=== PATIENT | male | born 1965 | race Caucasian/White ===

== ENCOUNTER 2016-11-14 12:47 | Inpatient (IN) | payer OTHER ==
[~2016-11-14] VITALS: Ht 180.3 cm; Wt 96.6 kg
[2016-11-14] MEDS ORDERED: LEVETIRACETAM (500MG) 500 MG in IV NS 0.9% 100 ML IV STA (13:00)
[2016-11-14] MEDS ORDERED: IV SET PRIMARY PUMP SET 1 EA INFUS.SET MC ONE ×3 (13:28→20:49)
[2016-11-14] MEDS ORDERED: CEFTRIAXONE 1GM BAG (ER ONLY) 50 ML IV ONE (13:28)
[2016-11-14] MEDS ORDERED: OCTREOTIDE 100 MCG/ML VIAL ONE (13:29)
[2016-11-14] MEDS ORDERED: OCTREOTIDE 1,250 MCG in IV NS 0.9% 250 ML IV ONE (13:30)
[2016-11-14] MEDS ORDERED: PANTOPRAZOLE 80 MG in IV NS 0.9% 500 ML IV ONE (13:30)
[2016-11-14] MEDS ORDERED: OCTREOTIDE 50 MCG/ML AMPUL IV ONE (13:30)
[2016-11-14] MEDS ORDERED: PANTOPRAZOLE 80 MG in IV NS 0.9% 100 ML IV ONE (13:30)
[2016-11-14] MEDS ORDERED: CEFTRIAXONE 1GM BAG (ER ONLY) 1 GM/50 ML PIGGYBACK IV ONE (13:30)
[2016-11-14 13:32] LABS: BASOPHILS % (AUTO) 0.6 % (0.0-2.0); DIFF TOTAL % 100 %; EOSINOPHILS # (AUTO) 0.1 /CMM (0.0-0.7); EOSINOPHILS % (AUTO) 1.7 % (0.0-6.0); HEMATOCRIT 28 % (39-51); HEMOGLOBIN 9.2 g/dL (13.5-17.5); LYMPHOCYTES # (AUTO) 1.1 /CMM (0.8-4.8); LYMPHOCYTES % (AUTO) 25.6 % (20.0-44.0); MEAN CORPUSCULAR HEMOGLOBIN 28 PG (26.0-33.0); MEAN CORPUSCULAR HGB CONC 33 g/dl (31.0-36.0); MEAN CORPUSCULAR VOLUME 84 fL (80-96); MONOCYTES # (AUTO) 0.7 /CMM (0.1-1.30); MONOCYTES % (AUTO) 15.4 % (2.0-12.0); NEUTROPHILS # (AUTO) 2.5 /CMM (1.8-8.9); NEUTROPHILS % (AUTO) 56.7 % (43.0-81.0); RED BLOOD CELL COUNT(AUTO) 3.34 MIL/uL (4.5-6.0); WHITE BLOOD COUNT (AUTO) 4.5 K/uL (4.3-11.0)
[2016-11-14] MEDS ORDERED: LEVE500T6 PO (13:38)
[2016-11-14 13:43] LABS: CALCIUM, SERUM 7.5 mg/dL (8.5-10.1); CREATININE 0.6 mg/dL (0.6-1.3); POTASSIUM 3.2 mmol/L (3.5-5.1)
[2016-11-14] MEDS ORDERED: THIA100T74 PO (13:44)
[2016-11-14 13:46] LABS: PLATELET COUNT (AUTO) 44 /CMM (150-450)
[2016-11-14] MEDS ORDERED: HYDR-552 PO (13:49)
[2016-11-14 13:50] LABS: ALBUMIN 2.8 g/dL (3.4-5.0); BILIRUBIN,DIRECT 1.2 mg/dL (0.0-0.2); BILIRUBIN,TOTAL 1.7 mg/dL (0.2-1.0); INDIRECT BILIRUBIN 0.5 mg/dL (0.0-1.1); TOTAL PROTEIN, SERUM 7.5 g/dL (6.4-8.2)
[2016-11-14] MEDS ORDERED: Z GUARD REMEDY 2 OZ OINT TP PRN (15:30)
[2016-11-14] MEDS ORDERED: ONDANSETRON HCL/PF 4 MG/2 ML VIAL IVP PRN (15:30)
[2016-11-14 16:00] VITALS: BP 129/75
[2016-11-14 16:09] LABS: ANISOCYTOSIS 3+; LYMPHOCYTES % (MANUAL) 19 % (16-48); PLATELET ESTIMATE DECREASED
[2016-11-14] MEDS: IV NS 0.9% 1,000 ML IV PRN (18:03)
[2016-11-14] MEDS ORDERED: PIPERACILLIN /TAZOBACTAM 4.5 G in IV D5W 50 ML IV SCH (19:00)
[2016-11-14] MEDS ORDERED: LORAZEPAM INJ 2 MG/ML VIAL IV PRN (19:00)
[2016-11-14 20:00] VITALS: BP 93/45
[2016-11-14] MEDS ORDERED: SECONDARY IV SET 1 EA INFUS.SET MC ONE (20:17)
[2016-11-14] MEDS ORDERED: IV NS 0.9% 200 ML IV ONE (20:50)
[2016-11-14] MEDS: Folic acid 1 MG in IV D5W 50 ML IV SCH (20:56)
[2016-11-14] MEDS: Thiamine 100 MG in IV D5W 50 ML IV SCH (20:56)
[2016-11-14] MEDS: LEVETIRACETAM (250 MG) 250 MG TABLET PO SCH (21:12)
[2016-11-15] VITALS (9 sets, daily range): BP systolic 109–140; BP diastolic 57–81
[2016-11-15] MEDS ORDERED: SECONDARY IV SET 1 EA INFUS.SET MC ONE ×3 (00:12→22:24)
[2016-11-15] MEDS: PIPERACILLIN /TAZOBACTAM 3.375 G in IV D5W 50 ML IV SCH ×4 (00:23→17:01)
[2016-11-15] MEDS: PANTOPRAZOLE 80 MG in IV NS 0.9% 500 ML IV PRN ×3 (02:11→23:29)
[2016-11-15 07:01] LABS: BASOPHILS % (AUTO) 0.9 % (0.0-2.0); DIFF TOTAL % 100 %; EOSINOPHILS # (AUTO) 0.1 /CMM (0.0-0.7); EOSINOPHILS % (AUTO) 2.4 % (0.0-6.0); HEMATOCRIT 24 % (39-51); HEMOGLOBIN 7.8 g/dL (13.5-17.5); LYMPHOCYTES # (AUTO) 0.7 /CMM (0.8-4.8); LYMPHOCYTES % (AUTO) 28.1 % (20.0-44.0); MEAN CORPUSCULAR HEMOGLOBIN 28 PG (26.0-33.0); MEAN CORPUSCULAR HGB CONC 32 g/dl (31.0-36.0); MEAN CORPUSCULAR VOLUME 85 fL (80-96); MONOCYTES # (AUTO) 0.6 /CMM (0.1-1.30); MONOCYTES % (AUTO) 23.7 % (2.0-12.0); NEUTROPHILS # (AUTO) 1.1 /CMM (1.8-8.9); NEUTROPHILS % (AUTO) 44.9 % (43.0-81.0); RED BLOOD CELL COUNT(AUTO) 2.83 MIL/uL (4.5-6.0); WHITE BLOOD COUNT (AUTO) 2.4 K/uL (4.3-11.0)
[2016-11-15 07:08] LABS: ALBUMIN 2.2 g/dL (3.4-5.0); BILIRUBIN,TOTAL 1.7 mg/dL (0.2-1.0); CALCIUM, SERUM 6.9 mg/dL (8.5-10.1); CREATININE 0.6 mg/dL (0.6-1.3); PHOSPHORUS 2.7 mg/dL (2.5-4.9); POTASSIUM 3.6 mmol/L (3.5-5.1); TOTAL PROTEIN, SERUM 6.2 g/dL (6.4-8.2)
[2016-11-15 07:29] LABS: INR 1.72 (0.87-1.13); PROTHROMBIN TIME 18.7 SECS (9.5-12.7)
[2016-11-15 07:39] LABS: PLATELET COUNT (AUTO) 20 /CMM (150-450)
[2016-11-15] MEDS: IV NS 0.9% 1,000 ML IV PRN (08:06)
[2016-11-15] MEDS: LEVETIRACETAM (250 MG) 250 MG TABLET PO SCH (09:00)
[2016-11-15] MEDS ORDERED: Folic acid 1 MG in IV D5W 50 ML IV SCH (09:00)
[2016-11-15 10:06] LABS: ANISOCYTOSIS 3+; EOSINOPHILS % (MANUAL) 5 % (0-4); LYMPHOCYTES % (MANUAL) 11 % (16-48); PLATELET ESTIMATE DECREASED; POIKILOCYTOSIS 1+
[2016-11-15 12:27] LABS: BASOPHILS % (AUTO) 1.8 % (0.0-2.0); DIFF TOTAL % 100 %; EOSINOPHILS % (AUTO) 0.9 % (0.0-6.0); HEMATOCRIT 27 % (39-51); HEMOGLOBIN 8.6 g/dL (13.5-17.5); LYMPHOCYTES # (AUTO) 0.5 /CMM (0.8-4.8); LYMPHOCYTES % (AUTO) 21.1 % (20.0-44.0); MEAN CORPUSCULAR HEMOGLOBIN 27 PG (26.0-33.0); MEAN CORPUSCULAR HGB CONC 32 g/dl (31.0-36.0); MEAN CORPUSCULAR VOLUME 84 fL (80-96); MONOCYTES # (AUTO) 0.4 /CMM (0.1-1.30); MONOCYTES % (AUTO) 15.3 % (2.0-12.0); NEUTROPHILS # (AUTO) 1.4 /CMM (1.8-8.9); NEUTROPHILS % (AUTO) 60.9 % (43.0-81.0); RED BLOOD CELL COUNT(AUTO) 3.18 MIL/uL (4.5-6.0); WHITE BLOOD COUNT (AUTO) 2.4 K/uL (4.3-11.0)
[2016-11-15 12:44] LABS: PLATELET COUNT (AUTO) 31 /CMM (150-450)
[2016-11-15 14:07] LABS: BAND % (MANUAL) 1 % (0.0-5.0); LYMPHOCYTES % (MANUAL) 6 % (16-48)
[2016-11-15 14:08] LABS: ANISOCYTOSIS 2+; PLATELET ESTIMATE DECREASED
[2016-11-15] MEDS: Magnesium 1GM/D5W 100ML PREMIX 100 ML IV SCH ×2 (14:10→15:35)
[2016-11-15 15:10] LABS: KETONES,URINE NEGATIVE (NEGATIVE); LEUKOCYTE ESTERASE ,URINE NEGATIVE (NEGATIVE)
[2016-11-15 15:12] LABS: ADD UA MICROSCOPIC YES
[2016-11-15 15:48] LABS: ADD URINE CULTURE NO; WBC,URINE 0-2 /HPF (0-3)
[2016-11-15] MEDS: OCTREOTIDE 1,250 MCG in IV NS 0.9% 247.5 ML IV PRN (16:56)
[2016-11-15 18:19] LABS: BASOPHILS % (AUTO) 0.9 % (0.0-2.0); EOSINOPHILS % (AUTO) 0.6 % (0.0-6.0); HEMATOCRIT 26 % (39-51); HEMOGLOBIN 8.2 g/dL (13.5-17.5); LYMPHOCYTES # (AUTO) 0.5 /CMM (0.8-4.8); LYMPHOCYTES % (AUTO) 19.8 % (20.0-44.0); MEAN CORPUSCULAR HEMOGLOBIN 27 PG (26.0-33.0); MEAN CORPUSCULAR HGB CONC 32 g/dl (31.0-36.0); MEAN CORPUSCULAR VOLUME 84 fL (80-96); MONOCYTES # (AUTO) 0.5 /CMM (0.1-1.30); MONOCYTES % (AUTO) 21.2 % (2.0-12.0); NEUTROPHILS # (AUTO) 1.3 /CMM (1.8-8.9); NEUTROPHILS % (AUTO) 57.5 % (43.0-81.0); RED BLOOD CELL COUNT(AUTO) 3.05 MIL/uL (4.5-6.0); WHITE BLOOD COUNT (AUTO) 2.3 K/uL (4.3-11.0)
[2016-11-15 19:07] LABS: DIFF TOTAL % 100 %; PLATELET COUNT (AUTO) 26 /CMM (150-450)
[2016-11-15 19:44] LABS: ANISOCYTOSIS 1+; BAND % (MANUAL) 2 % (0.0-5.0); HYPOCHROMASIA 1+; LYMPHOCYTES % (MANUAL) 20 % (16-48); PLATELET ESTIMATE DECREASED; ROULEAUX 1+
[2016-11-15 19:45] LABS: MICROCYTOSIS 1+; TARGET CELLS 1+
[2016-11-15] MEDS: Folic acid 1 MG in IV D5W 50 ML IV SCH (20:14)
[2016-11-15] MEDS: Thiamine 100 MG in IV D5W 50 ML IV SCH (20:59)
[2016-11-15] MEDS ORDERED: MORPHINE SULFATE INJ 2 MG/ML DISP.SYRIN IV PRN (21:00)
[2016-11-15] MEDS ORDERED: LEVETIRACETAM (500MG) 500 MG/5 ML VIAL IV ONE (22:17)
[2016-11-15] MEDS ORDERED: IV NS 0.9% 100 ML IV ONE (22:24)
[2016-11-15] MEDS: LEVETIRACETAM (500MG) 500 MG in IV NS 0.9% 100 ML IV SCH (22:32)
[2016-11-16] VITALS: BP 124/70
[2016-11-16] MEDS: PIPERACILLIN /TAZOBACTAM 3.375 G in IV D5W 50 ML IV SCH ×4 (00:05→17:19)
[2016-11-16] MEDS ORDERED: SECONDARY IV SET 1 EA INFUS.SET MC ONE ×2 (00:06→09:34)
[2016-11-16 00:53] LABS: BASOPHILS % (AUTO) 0.5 % (0.0-2.0); DIFF TOTAL % 100 %; EOSINOPHILS # (AUTO) 0.1 /CMM (0.0-0.7); EOSINOPHILS % (AUTO) 2.1 % (0.0-6.0); HEMATOCRIT 25 % (39-51); HEMOGLOBIN 8.1 g/dL (13.5-17.5); LYMPHOCYTES # (AUTO) 0.8 /CMM (0.8-4.8); LYMPHOCYTES % (AUTO) 34.3 % (20.0-44.0); MEAN CORPUSCULAR HEMOGLOBIN 27 PG (26.0-33.0); MEAN CORPUSCULAR HGB CONC 32 g/dl (31.0-36.0); MEAN CORPUSCULAR VOLUME 84 fL (80-96); MONOCYTES # (AUTO) 0.5 /CMM (0.1-1.30); NEUTROPHILS % (AUTO) 41.1 % (43.0-81.0); RED BLOOD CELL COUNT(AUTO) 3.02 MIL/uL (4.5-6.0); WHITE BLOOD COUNT (AUTO) 2.4 K/uL (4.3-11.0)
[2016-11-16 00:56] LABS: PLATELET COUNT (AUTO) 26 /CMM (150-450)
[2016-11-16 02:27] LABS: ANISOCYTOSIS 1+; EOSINOPHILS % (MANUAL) 4 % (0-4); HYPOCHROMASIA 1+; LYMPHOCYTES % (MANUAL) 32 % (16-48); PLATELET ESTIMATE DECREASED
[2016-11-16] MEDS: IV NS 0.9% 1,000 ML IV PRN (07:51)
[2016-11-16 08:00] VITALS: BP 116/70
[2016-11-16 08:38] LABS: BASOPHILS % (AUTO) 0.6 % (0.0-2.0); DIFF TOTAL % 100 %; EOSINOPHILS # (AUTO) 0.1 /CMM (0.0-0.7); EOSINOPHILS % (AUTO) 3.3 % (0.0-6.0); HEMATOCRIT 26 % (39-51); HEMOGLOBIN 8.6 g/dL (13.5-17.5); LYMPHOCYTES # (AUTO) 0.5 /CMM (0.8-4.8); MEAN CORPUSCULAR HEMOGLOBIN 27 PG (26.0-33.0); MEAN CORPUSCULAR HGB CONC 33 g/dl (31.0-36.0); MEAN CORPUSCULAR VOLUME 84 fL (80-96); MONOCYTES # (AUTO) 0.4 /CMM (0.1-1.30); MONOCYTES % (AUTO) 19.8 % (2.0-12.0); NEUTROPHILS # (AUTO) 0.9 /CMM (1.8-8.9); NEUTROPHILS % (AUTO) 49.3 % (43.0-81.0); RED BLOOD CELL COUNT(AUTO) 3.13 MIL/uL (4.5-6.0)
[2016-11-16 08:44] LABS: PLATELET COUNT (AUTO) 21 /CMM (150-450); WHITE BLOOD COUNT (AUTO) 1.8 K/uL (4.3-11.0)
[2016-11-16 09:23] LABS: ALBUMIN 2.4 g/dL (3.4-5.0); BILIRUBIN,DIRECT 1.5 mg/dL (0.0-0.2); CALCIUM, SERUM 7.3 mg/dL (8.5-10.1); CREATININE 0.6 mg/dL (0.6-1.3); INDIRECT BILIRUBIN 1.5 mg/dL (0.0-1.1); POTASSIUM 3.5 mmol/L (3.5-5.1); TOTAL PROTEIN, SERUM 6.6 g/dL (6.4-8.2)
[2016-11-16] MEDS: PANTOPRAZOLE 80 MG in IV NS 0.9% 500 ML IV PRN (09:31)
[2016-11-16] MEDS: LEVETIRACETAM (500MG) 500 MG in IV NS 0.9% 100 ML IV SCH ×2 (09:36→21:29)
[2016-11-16 09:49] LABS: ANISOCYTOSIS 1+; EOSINOPHILS % (MANUAL) 4 % (0-4); LYMPHOCYTES % (MANUAL) 26 % (16-48); PLATELET ESTIMATE DECREASED
[2016-11-16 12:29] LABS: BASOPHILS % (AUTO) 0.4 % (0.0-2.0); DIFF TOTAL % 100 %; EOSINOPHILS % (AUTO) 1.8 % (0.0-6.0); HEMATOCRIT 27 % (39-51); HEMOGLOBIN 8.4 g/dL (13.5-17.5); LYMPHOCYTES # (AUTO) 0.4 /CMM (0.8-4.8); LYMPHOCYTES % (AUTO) 19.2 % (20.0-44.0); MEAN CORPUSCULAR HEMOGLOBIN 27 PG (26.0-33.0); MEAN CORPUSCULAR HGB CONC 32 g/dl (31.0-36.0); MEAN CORPUSCULAR VOLUME 85 fL (80-96); MONOCYTES # (AUTO) 0.4 /CMM (0.1-1.30); NEUTROPHILS # (AUTO) 1.2 /CMM (1.8-8.9); NEUTROPHILS % (AUTO) 59.6 % (43.0-81.0); RED BLOOD CELL COUNT(AUTO) 3.16 MIL/uL (4.5-6.0)
[2016-11-16 12:36] LABS: PLATELET COUNT (AUTO) 25 /CMM (150-450)
[2016-11-16 12:53] LABS: LYMPHOCYTES % (MANUAL) 21 % (16-48)
[2016-11-16 12:54] LABS: ANISOCYTOSIS 1+; EOSINOPHILS % (MANUAL) 2 % (0-4); PLATELET ESTIMATE DECREASED
[2016-11-16 16:00] VITALS: BP 140/78
[2016-11-16] MEDS: OCTREOTIDE 1,250 MCG in IV NS 0.9% 247.5 ML IV PRN (17:19)
[2016-11-16 18:00] VITALS: BP 140/78
[2016-11-16 18:15] LABS: BASOPHILS % (AUTO) 0.5 % (0.0-2.0); DIFF TOTAL % 100 %; EOSINOPHILS # (AUTO) 0.1 /CMM (0.0-0.7); EOSINOPHILS % (AUTO) 2.2 % (0.0-6.0); HEMATOCRIT 27 % (39-51); HEMOGLOBIN 8.5 g/dL (13.5-17.5); LYMPHOCYTES # (AUTO) 0.7 /CMM (0.8-4.8); LYMPHOCYTES % (AUTO) 26.8 % (20.0-44.0); MEAN CORPUSCULAR HEMOGLOBIN 27 PG (26.0-33.0); MEAN CORPUSCULAR HGB CONC 31 g/dl (31.0-36.0); MEAN CORPUSCULAR VOLUME 85 fL (80-96); MONOCYTES # (AUTO) 0.5 /CMM (0.1-1.30); MONOCYTES % (AUTO) 18.8 % (2.0-12.0); NEUTROPHILS # (AUTO) 1.4 /CMM (1.8-8.9); NEUTROPHILS % (AUTO) 51.7 % (43.0-81.0); WHITE BLOOD COUNT (AUTO) 2.6 K/uL (4.3-11.0)
[2016-11-16 18:24] LABS: PLATELET COUNT (AUTO) 28 /CMM (150-450)
[2016-11-16 18:46] LABS: EOSINOPHILS % (MANUAL) 2 % (0-4); LYMPHOCYTES % (MANUAL) 28 % (16-48)
[2016-11-16 18:47] LABS: ANISOCYTOSIS 1+; HYPOCHROMASIA 1+; PLATELET ESTIMATE DECREASED
[2016-11-16] MEDS: Folic acid 1 MG in IV D5W 50 ML IV SCH (19:45)
[2016-11-16] MEDS: Thiamine 100 MG in IV D5W 50 ML IV SCH (19:46)
[2016-11-16 20:00] VITALS: BP 131/73
[2016-11-16] MEDS ORDERED: IV SET PRIMARY PUMP SET 1 EA INFUS.SET MC ONE (20:23)
[2016-11-16] MEDS ORDERED: IV D5W 1,000 ML IV ONE (20:23)
[2016-11-16] MEDS: IV D5W 1,000 ML IV PRN (20:30)
[2016-11-16 21:18] VITALS: BP 131/73
[2016-11-17] MEDS: PIPERACILLIN /TAZOBACTAM 3.375 G in IV D5W 50 ML IV SCH ×4 (00:27→18:47)
[2016-11-17 01:02] LABS: BASOPHILS # (AUTO) 0.1 /CMM (0.0-0.2); DIFF TOTAL % 100 %; EOSINOPHILS # (AUTO) 0.1 /CMM (0.0-0.7); EOSINOPHILS % (AUTO) 2.8 % (0.0-6.0); HEMATOCRIT 27 % (39-51); HEMOGLOBIN 8.5 g/dL (13.5-17.5); LYMPHOCYTES # (AUTO) 0.8 /CMM (0.8-4.8); LYMPHOCYTES % (AUTO) 28.9 % (20.0-44.0); MEAN CORPUSCULAR HEMOGLOBIN 27 PG (26.0-33.0); MEAN CORPUSCULAR HGB CONC 32 g/dl (31.0-36.0); MEAN CORPUSCULAR VOLUME 85 fL (80-96); MONOCYTES # (AUTO) 0.4 /CMM (0.1-1.30); MONOCYTES % (AUTO) 16.8 % (2.0-12.0); NEUTROPHILS # (AUTO) 1.2 /CMM (1.8-8.9); NEUTROPHILS % (AUTO) 49.5 % (43.0-81.0); RED BLOOD CELL COUNT(AUTO) 3.12 MIL/uL (4.5-6.0); WHITE BLOOD COUNT (AUTO) 2.7 K/uL (4.3-11.0)
[2016-11-17 01:06] LABS: PLATELET COUNT (AUTO) 20 /CMM (150-450)
[2016-11-17 01:57] LABS: BAND % (MANUAL) 1 % (0.0-5.0); LYMPHOCYTES % (MANUAL) 25 % (16-48)
[2016-11-17 01:58] LABS: ANISOCYTOSIS 1+; BASOPHILS % (MANUAL) 0 % (0.0-2.0); EOSINOPHILS % (MANUAL) 4 % (0-4); PLATELET ESTIMATE DECREASED; TARGET CELLS 1+
[2016-11-17 07:34] LABS: DIFF TOTAL % 100 %; EOSINOPHILS # (AUTO) 0.1 /CMM (0.0-0.7); EOSINOPHILS % (AUTO) 3.5 % (0.0-6.0); HEMATOCRIT 26 % (39-51); HEMOGLOBIN 8.5 g/dL (13.5-17.5); LYMPHOCYTES # (AUTO) 0.6 /CMM (0.8-4.8); LYMPHOCYTES % (AUTO) 24.6 % (20.0-44.0); MEAN CORPUSCULAR HEMOGLOBIN 28 PG (26.0-33.0); MEAN CORPUSCULAR HGB CONC 32 g/dl (31.0-36.0); MEAN CORPUSCULAR VOLUME 85 fL (80-96); MONOCYTES # (AUTO) 0.4 /CMM (0.1-1.30); MONOCYTES % (AUTO) 18.6 % (2.0-12.0); NEUTROPHILS # (AUTO) 1.2 /CMM (1.8-8.9); NEUTROPHILS % (AUTO) 52.3 % (43.0-81.0); RED BLOOD CELL COUNT(AUTO) 3.08 MIL/uL (4.5-6.0); WHITE BLOOD COUNT (AUTO) 2.3 K/uL (4.3-11.0)
[2016-11-17 08:11] LABS: PLATELET COUNT (AUTO) 22 /CMM (150-450)
[2016-11-17 08:44] VITALS: BP 113/72
[2016-11-17 09:32] LABS: ANISOCYTOSIS 1+; BAND % (MANUAL) 4 % (0.0-5.0); EOSINOPHILS % (MANUAL) 4 % (0-4); HYPOCHROMASIA 1+; LYMPHOCYTES % (MANUAL) 22 % (16-48); PLATELET ESTIMATE DECREASED
[2016-11-17] MEDS: LEVETIRACETAM (500MG) 500 MG in IV NS 0.9% 100 ML IV SCH ×2 (10:31→22:48)
[2016-11-17] MEDS ORDERED: IV SET PRIMARY PUMP SET 1 EA INFUS.SET MC ONE (12:26)
[2016-11-17] MEDS: PANTOPRAZOLE 80 MG in IV NS 0.9% 500 ML IV PRN (12:26)
[2016-11-17 13:47] LABS: BASOPHILS % (AUTO) 0.7 % (0.0-2.0); DIFF TOTAL % 100 %; EOSINOPHILS # (AUTO) 0.1 /CMM (0.0-0.7); EOSINOPHILS % (AUTO) 1.9 % (0.0-6.0); HEMATOCRIT 28 % (39-51); LYMPHOCYTES # (AUTO) 0.5 /CMM (0.8-4.8); LYMPHOCYTES % (AUTO) 17.5 % (20.0-44.0); MEAN CORPUSCULAR HEMOGLOBIN 27 PG (26.0-33.0); MEAN CORPUSCULAR HGB CONC 32 g/dl (31.0-36.0); MEAN CORPUSCULAR VOLUME 85 fL (80-96); MONOCYTES # (AUTO) 0.4 /CMM (0.1-1.30); MONOCYTES % (AUTO) 15.7 % (2.0-12.0); NEUTROPHILS # (AUTO) 1.8 /CMM (1.8-8.9); NEUTROPHILS % (AUTO) 64.2 % (43.0-81.0); RED BLOOD CELL COUNT(AUTO) 3.31 MIL/uL (4.5-6.0); WHITE BLOOD COUNT (AUTO) 2.9 K/uL (4.3-11.0)
[2016-11-17 14:16] LABS: PLATELET COUNT (AUTO) 29 /CMM (150-450)
[2016-11-17 14:52] LABS: BAND % (MANUAL) 3 % (0.0-5.0); EOSINOPHILS % (MANUAL) 2 % (0-4); LYMPHOCYTES % (MANUAL) 16 % (16-48)
[2016-11-17 16:00] VITALS: BP 107/69
[2016-11-17 18:22] LABS: BASOPHILS % (AUTO) 0.7 % (0.0-2.0); DIFF TOTAL % 100 %; EOSINOPHILS # (AUTO) 0.1 /CMM (0.0-0.7); EOSINOPHILS % (AUTO) 2.2 % (0.0-6.0); HEMATOCRIT 27 % (39-51); HEMOGLOBIN 8.7 g/dL (13.5-17.5); LYMPHOCYTES # (AUTO) 0.6 /CMM (0.8-4.8); MEAN CORPUSCULAR HEMOGLOBIN 27 PG (26.0-33.0); MEAN CORPUSCULAR HGB CONC 32 g/dl (31.0-36.0); MEAN CORPUSCULAR VOLUME 85 fL (80-96); MONOCYTES # (AUTO) 0.4 /CMM (0.1-1.30); MONOCYTES % (AUTO) 14.3 % (2.0-12.0); NEUTROPHILS # (AUTO) 1.7 /CMM (1.8-8.9); NEUTROPHILS % (AUTO) 61.8 % (43.0-81.0); WHITE BLOOD COUNT (AUTO) 2.7 K/uL (4.3-11.0)
[2016-11-17 18:24] LABS: PLATELET COUNT (AUTO) 26 /CMM (150-450)
[2016-11-17] MEDS: OCTREOTIDE 1,250 MCG in IV NS 0.9% 247.5 ML IV PRN (18:53)
[2016-11-17 20:00] VITALS: BP 110/87
[2016-11-17] MEDS: IV D5W 1,000 ML IV PRN (21:52)
[2016-11-17] MEDS: Folic acid 1 MG in IV D5W 50 ML IV SCH (21:52)
[2016-11-17] MEDS: Thiamine 100 MG in IV D5W 50 ML IV SCH (21:53)
[2016-11-18] MEDS: PIPERACILLIN /TAZOBACTAM 3.375 G in IV D5W 50 ML IV SCH ×3 (00:27→12:45)
[2016-11-18] MEDS: PANTOPRAZOLE 80 MG in IV NS 0.9% 500 ML IV PRN (00:28)
[2016-11-18 01:37] LABS: BASOPHILS % (AUTO) 0.4 % (0.0-2.0); DIFF TOTAL % 100 %; EOSINOPHILS # (AUTO) 0.1 /CMM (0.0-0.7); HEMATOCRIT 28 % (39-51); HEMOGLOBIN 8.8 g/dL (13.5-17.5); LYMPHOCYTES # (AUTO) 0.8 /CMM (0.8-4.8); MEAN CORPUSCULAR HEMOGLOBIN 27 PG (26.0-33.0); MEAN CORPUSCULAR HGB CONC 32 g/dl (31.0-36.0); MEAN CORPUSCULAR VOLUME 85 fL (80-96); MONOCYTES # (AUTO) 0.4 /CMM (0.1-1.30); MONOCYTES % (AUTO) 12.2 % (2.0-12.0); NEUTROPHILS # (AUTO) 2.1 /CMM (1.8-8.9); NEUTROPHILS % (AUTO) 62.4 % (43.0-81.0); RED BLOOD CELL COUNT(AUTO) 3.25 MIL/uL (4.5-6.0); WHITE BLOOD COUNT (AUTO) 3.4 K/uL (4.3-11.0)
[2016-11-18 01:46] LABS: PLATELET COUNT (AUTO) 27 /CMM (150-450)
[2016-11-18 02:18] LABS: ANISOCYTOSIS 2+; BAND % (MANUAL) 7 % (0.0-5.0); BASOPHILS % (MANUAL) 0 % (0.0-2.0); EOSINOPHILS % (MANUAL) 7 % (0-4); LYMPHOCYTES % (MANUAL) 27 % (16-48); PLATELET ESTIMATE DECREASED; TARGET CELLS 1+
[2016-11-18 04:00] VITALS: BP 120/87
[2016-11-18 07:28] LABS: BASOPHILS % (AUTO) 0.7 % (0.0-2.0); DIFF TOTAL % 100 %; EOSINOPHILS # (AUTO) 0.1 /CMM (0.0-0.7); EOSINOPHILS % (AUTO) 2.2 % (0.0-6.0); HEMATOCRIT 26 % (39-51); HEMOGLOBIN 8.4 g/dL (13.5-17.5); LYMPHOCYTES # (AUTO) 0.6 /CMM (0.8-4.8); LYMPHOCYTES % (AUTO) 19.5 % (20.0-44.0); MEAN CORPUSCULAR HEMOGLOBIN 27 PG (26.0-33.0); MEAN CORPUSCULAR HGB CONC 32 g/dl (31.0-36.0); MEAN CORPUSCULAR VOLUME 86 fL (80-96); MONOCYTES # (AUTO) 0.4 /CMM (0.1-1.30); MONOCYTES % (AUTO) 14.2 % (2.0-12.0); NEUTROPHILS # (AUTO) 1.9 /CMM (1.8-8.9); NEUTROPHILS % (AUTO) 63.4 % (43.0-81.0); RED BLOOD CELL COUNT(AUTO) 3.06 MIL/uL (4.5-6.0); WHITE BLOOD COUNT (AUTO) 3.1 K/uL (4.3-11.0)
[2016-11-18 07:45] LABS: PLATELET COUNT (AUTO) 28 /CMM (150-450)
[2016-11-18 08:00] VITALS: BP 102/62
[2016-11-18 08:27] LABS: ANISOCYTOSIS 1+; BAND % (MANUAL) 1 % (0.0-5.0); EOSINOPHILS % (MANUAL) 2 % (0-4); HYPOCHROMASIA 1+; LYMPHOCYTES % (MANUAL) 16 % (16-48); PLATELET ESTIMATE DECREASED
[2016-11-18] MEDS: LEVETIRACETAM (500MG) 500 MG in IV NS 0.9% 100 ML IV SCH (08:57)
[2016-11-18] MEDS ORDERED: SECONDARY IV SET 1 EA INFUS.SET MC ONE (09:02)
[2016-11-18] MEDS ORDERED: THIAMINE HCL 100 MG TABLET PO SCH (11:30)
[2016-11-18] MEDS ORDERED: FOLIC ACID 1 MG TABLET PO SCH (11:30)
[2016-11-18 12:23] LABS: BASOPHILS % (AUTO) 0.5 % (0.0-2.0); DIFF TOTAL % 100 %; EOSINOPHILS # (AUTO) 0.1 /CMM (0.0-0.7); EOSINOPHILS % (AUTO) 2.5 % (0.0-6.0); HEMATOCRIT 27 % (39-51); HEMOGLOBIN 8.4 g/dL (13.5-17.5); LYMPHOCYTES # (AUTO) 0.6 /CMM (0.8-4.8); LYMPHOCYTES % (AUTO) 19.1 % (20.0-44.0); MEAN CORPUSCULAR HEMOGLOBIN 27 PG (26.0-33.0); MEAN CORPUSCULAR HGB CONC 32 g/dl (31.0-36.0); MEAN CORPUSCULAR VOLUME 85 fL (80-96); MONOCYTES # (AUTO) 0.5 /CMM (0.1-1.30); MONOCYTES % (AUTO) 14.9 % (2.0-12.0); NEUTROPHILS # (AUTO) 1.9 /CMM (1.8-8.9); RED BLOOD CELL COUNT(AUTO) 3.11 MIL/uL (4.5-6.0); WHITE BLOOD COUNT (AUTO) 3.1 K/uL (4.3-11.0)
[2016-11-18 12:26] LABS: PLATELET COUNT (AUTO) 28 /CMM (150-450)
[2016-11-18 12:44] LABS: ANISOCYTOSIS 1+; BAND % (MANUAL) 5 % (0.0-5.0); EOSINOPHILS % (MANUAL) 4 % (0-4); HYPOCHROMASIA 1+; LYMPHOCYTES % (MANUAL) 18 % (16-48); PLATELET ESTIMATE DECREASED
[2016-11-18 12:45] LABS: POLYCHROMASIA SLT; SPHEROCYTES SLT; TARGET CELLS 1+
[2016-11-18 16:00] VITALS: BP 118/62
[2016-11-18 16:42] VITALS: BP 118/68
[2016-11-18] MEDS ORDERED: LEVETIRACETAM (250 MG) 250 MG TABLET PO SCH (21:00)
[2016-11-19] MEDS ORDERED: PANTOPRAZOLE 40 MG TABLET.DR PO SCH (07:30)
== END 2016-11-18 18:04 | disposition home or self-care (01) | DRG 280 ==
LOC: EDSEX 12:49 → ER 12:49 → TELE 15:07 → MED 11-16 12:47
PROVIDERS: ADMIT Internal Medicine; ATTEND Internal Medicine
PROC: 0DJ08ZZ Inspection of Upper Intestinal Tract, Via Natural or Artificial Opening Endoscopic (ICD-10-PCS; principal; 2016-11-15 11:30)
DX: K70.30 Alcoholic cirrhosis of liver without ascites (principal); I85.11 Secondary esophageal varices with bleeding; K65.2 Spontaneous bacterial peritonitis; D61.818 Other pancytopenia; E44.0 Moderate protein-calorie malnutrition; K76.6 Portal hypertension; D69.6 Thrombocytopenia, unspecified; K72.90 Hepatic failure, unspecified without coma; D63.8 Anemia in other chronic diseases classified elsewhere; D72.819 Decreased white blood cell count, unspecified; E87.6 Hypokalemia; I25.10 Atherosclerotic heart disease of native coronary artery without angina pectoris; K21.9 Gastro-esophageal reflux disease without esophagitis; K80.20 Calculus of gallbladder without cholecystitis without obstruction; F10.10 Alcohol abuse, uncomplicated; Z59.0 Homelessness; Z68.29 Body mass index [BMI] 29.0-29.9, adult
CPT/HCPCS: 36415; 80048-TC; 80053-TC; 80061-TC; 80076-TC; 81000-TC; 82140-TC; 83540-TC; 83690-TC; 83735-TC; 84100-TC; 84484-TC; 85025-TC; 85610-TC; 86850-TC; 86921-TC; 87081-TC; 93976-TC; C9113; J0696; J1953; J2270; J2354; J2543; J2704; J3411; J3475; J3490; J7030; J7040; J7050; J7060; J7070

== ENCOUNTER 2017-10-02 15:58 | Inpatient (IN) | payer OTHER ==
[~2017-10-02] VITALS: Ht 185.4 cm; Wt 95.3 kg
[~2017-10-02 15:58] MED LIST: LEVE500T9 PO; THIA100T74 PO
[2017-10-02] MEDS ORDERED: IV NS 0.9% 1,000 ML BAG IV ONE ×2 (16:00)
--- NOTE | 2017-10-02 16:10 | NUR ---
PT BIBA FOR "SVT"- Found altered at [facility] s/p alcohol and meth use today. PT AAOX2. 140S HR. SEEN BY MD FOR EVAL. IV ACCESS STORE OPERATIONS MANAGER. SAFETY AND COMFORT MEASURES PROVIDED. WILL MONITOR.
[2017-10-02 16:24] LABS: BASOPHILS % (AUTO) 0.7 % (0.0-2.0); EOSINOPHILS % (AUTO) 0.3 % (0.0-6.0); HEMATOCRIT 34 % (39-51); HEMOGLOBIN 10.8 g/dL (13.5-17.5); LYMPHOCYTES # (AUTO) 0.7 /CMM (0.8-4.8); LYMPHOCYTES % (AUTO) 10.6 % (20.0-44.0); MEAN CORPUSCULAR HEMOGLOBIN 28 PG (26.0-33.0); MEAN CORPUSCULAR HGB CONC 32 g/dl (31.0-36.0); MEAN CORPUSCULAR VOLUME 88 fL (80-96); MONOCYTES # (AUTO) 0.6 /CMM (0.1-1.30); MONOCYTES % (AUTO) 8.7 % (2.0-12.0); NEUTROPHILS # (AUTO) 5.3 /CMM (1.8-8.9); NEUTROPHILS % (AUTO) 79.7 % (43.0-81.0); PLATELET COUNT (AUTO) 93 /CMM (150-450); RDW COEFFICIENT OF VARIATION 25.8 (11.5-15.0); RED BLOOD CELL COUNT(AUTO) 3.88 MIL/uL (4.5-6.0); WHITE BLOOD COUNT (AUTO) 6.6 K/uL (4.3-11.0)
[2017-10-02] MEDS ORDERED: DILTIAZEM HCL 25 MG IV ONE (16:34)
[2017-10-02 16:43] LABS: TROPONIN I 0.025 ng/mL (0.00-0.056)
--- NOTE | 2017-10-02 16:43 | NUR ---
PT MEDICATED ORDERED.
[2017-10-02 16:45] LABS: INR 1.48 (0.87-1.13); PROTHROMBIN TIME 15.4 SECS (9.5-12.7)
[2017-10-02 16:47] LABS: BILIRUBIN,DIRECT 1.3 mg/dL (0.0-0.2); BILIRUBIN,TOTAL 2.2 mg/dL (0.2-1.0); CALCIUM, SERUM 8.5 mg/dL (8.5-10.1)
[2017-10-02] MEDS ORDERED: LEVE500T9 PO (16:53)
[2017-10-02] MEDS ORDERED: DILTIAZEM HCL IV 125 MG in IV D5W 100 ML IV ONE (17:00)
[2017-10-02] MEDS ORDERED: DILTIAZEM HCL 25 MG IV IVP ONE (17:00)
--- NOTE | 2017-10-02 17:00 | NUR ---
PT UNABLE TO PROVIDE URINE SAMPLE AT THIS TIME.
[2017-10-02] MEDS ORDERED: IOHEXOL-350 100 ML VIAL IV ONE (17:02)
--- NOTE | 2017-10-02 17:05 | NUR ---
PER TO STOP MARCO RYDER.
--- NOTE | 2017-10-02 17:21 | NUR ---
PT TAKEN TO CT.
--- NOTE | 2017-10-02 17:40 | NUR ---
REPORT GIVEN TO NORTH GARCIA FOR CLAUDIA 118-1
--- NOTE | 2017-10-02 18:53 | NUR ---
epic technology consultant - paged by exchange
[2017-10-02] MEDS ORDERED: LORAZEPAM INJ 2 MG/ML VIAL IV STA (18:55)
[2017-10-02] MEDS ORDERED: LORAZEPAM INJ 2 MG/ML VIAL ONE (18:59)
--- NOTE | 2017-10-02 19:44 | NUR ---
REPORT GIVEN TO JACEK GARCIA FOR CLAUDIA FOR CHAPIS.
[2017-10-02 20:00] VITALS: BP 151/80
[2017-10-02] MEDS ORDERED: MAG HYDROX/AL HYDROX/SIMETH 30 ML UDC PO PRN (20:00)
[2017-10-02] MEDS ORDERED: POTASSIUM CHLORIDE 20 MEQ TAB.PRT.SR PO ONE (20:00)
[2017-10-02] MEDS ORDERED: ZOLPIDEM TARTRATE 5 MG TABLET PO PRN (20:00)
[2017-10-02] MEDS ORDERED: DILTIAZEM HCL 50 MG IV IV PRN (20:00)
[2017-10-02] MEDS ORDERED: Z GUARD REMEDY 2 OZ OINT TP PRN (20:00)
[2017-10-02] MEDS ORDERED: ACETAMINOPHEN 325 MG TABLET PO PRN (20:00)
[2017-10-02] MEDS ORDERED: ONDANSETRON HCL/PF 4 MG/2 ML VIAL IVP PRN (20:00)
[2017-10-02] MEDS ORDERED: HYDROCODONE/APAP 5/325MG 1 EACH TABLET PO PRN (20:00)
[2017-10-02] MEDS ORDERED: POTASSIUM CL. PREMIX PERIPHER. 50 ML IV SCH (20:00)
[2017-10-02] MEDS ORDERED: MAGNESIUM HYDROXIDE 30 ML UDC PO PRN (20:00)
[2017-10-02] MEDS ORDERED: LORAZEPAM INJ 2 MG/ML VIAL IV PRN (20:00)
--- NOTE | 2017-10-02 20:00 | NUR ---
FIRE INSPECTOR NOTES ADMITTED A51 Y/O MALE FROM ER NURSE [facility]ON[facility] , PTS ADMITTED WITH DX OF ALOC , ON TELE -ST AT RATE OF 122 , ON ROOM AIR SATING 97% NO SOB NO DISTRESS NOTED . PTS IS A/O X3 ABLE TO MAKE NEEDS KNOWN ALL NEEDS ATTENDED TOO CALL LIGHT WITHIN REACH , ALL DUE MEDS GIVEN ORDERED .KEPT PTS CLEAN DRY AND COMFORTABLE.V/S STABLE AFEBRILE.
[2017-10-02] MEDS: Potassium Chloride 20 MEQ in IV NS 0.9% 1,000 ML IV PRN (21:55)
[2017-10-02] MEDS: DILTIAZEM HCL 25 MG IV IV PRN (22:04)
--- NOTE | 2017-10-02 22:04 | NUR ---
telemarketing representative notes cardizem 10mg ivp given as ordered for heart rate of 122, will continue to monitor.
--- NOTE | 2017-10-02 22:38 | NUR ---
telehealth case manager notes pts c/o of feeling nausea ,zofran 4mg ivp given as ordered ,with effect.
[2017-10-03] VITALS: BP 119/80
--- NOTE | 2017-10-03 02:11 | NUR ---
telephoto engineer notes ativan img ivp given as ordered , will continue to monitor pts , pts able to pass urine around 600c.
[2017-10-03 04:00] VITALS: BP 136/78
[2017-10-03] MEDS: DILTIAZEM HCL 25 MG IV IV PRN (05:52)
--- NOTE | 2017-10-03 05:53 | NUR ---
telephone clerk notes cardizem given as ordered for heart rate 120
--- NOTE | 2017-10-03 06:54 | NUR ---
telephone operators supervisor notes pts in bed awake and responsive , pts remains on st-rate of 120, all needs attended too call light within reach , will endorse to rn day shift for continuity of care.
[2017-10-03 07:33] LABS: BASOPHILS % (AUTO) 0.5 % (0.0-2.0); EOSINOPHILS % (AUTO) 0.3 % (0.0-6.0); HEMATOCRIT 30 % (39-51); HEMOGLOBIN 9.8 g/dL (13.5-17.5); LYMPHOCYTES # (AUTO) 0.7 /CMM (0.8-4.8); MEAN CORPUSCULAR HEMOGLOBIN 29 PG (26.0-33.0); MEAN CORPUSCULAR HGB CONC 33 g/dl (31.0-36.0); MEAN CORPUSCULAR VOLUME 87 fL (80-96); MONOCYTES # (AUTO) 0.8 /CMM (0.1-1.30); MONOCYTES % (AUTO) 16.7 % (2.0-12.0); NEUTROPHILS % (AUTO) 66.5 % (43.0-81.0); RDW COEFFICIENT OF VARIATION 27.2 (11.5-15.0); RED BLOOD CELL COUNT(AUTO) 3.41 MIL/uL (4.5-6.0); WHITE BLOOD COUNT (AUTO) 4.6 K/uL (4.3-11.0)
[2017-10-03 07:56] LABS: PLATELET COUNT (AUTO) 49 /CMM (150-450)
[2017-10-03 07:58] LABS: CALCIUM, SERUM 7.8 mg/dL (8.5-10.1); CREATININE 0.6 mg/dL (0.6-1.3); MAGNESIUM 1.5 mg/dL (1.8-2.4); PHOSPHORUS 2.6 mg/dL (2.5-4.9)
[2017-10-03 08:00] VITALS: BP 128/72
--- NOTE | 2017-10-03 08:00 | NUR ---
TELE1/RN AM SHIFT INITIAL NOTES RECEIVED PT AWAKE SITTING IN BED, PT A/O X 3 BUT FORGETFUL. NO ACUTE CHANGE OF CONDITION. PT DENIES ANY SYMPTOMS. ON ROOM AIR SATURATING @ 98%, LUNG SOUNDS CLEAR. ON TELE WITH SINUS TACHY, HR 111. WITH ON GOING IV INFUSION OF NS WITH 20MEQKCL @ 100CC/HR, IV SITES PATENT WITH NO S/S OF INFECTION. PT IS COMFORTABLE AT THIS TIME. SCHEDULED AM MEDS TO BE GIVEN. CL WITHIN REACHED AND SAFETY MAINTAINED. ON GOING MONITORING.
[2017-10-03 08:09] LABS: POTASSIUM 2.8 mmol/L (3.5-5.1)
[2017-10-03] MEDS: FOLIC ACID 1 MG TABLET PO SCH (09:19)
[2017-10-03] MEDS: Potassium Chloride 20 MEQ in IV NS 0.9% 1,000 ML IV PRN (09:19)
[2017-10-03] MEDS: LEVETIRACETAM (250 MG) 250 MG TABLET PO SCH (09:19)
[2017-10-03] MEDS: THIAMINE HCL 100 MG TABLET PO SCH (09:19)
[2017-10-03 09:45] LABS: EOSINOPHILS % (MANUAL) 1 % (0-4); LYMPHOCYTES % (MANUAL) 13 % (16-48); MONOCYTES % (MANUAL) 15 % (0-11.0); NEUTROPHILS % (MANUAL) 71 (42-76)
[2017-10-03] MEDS: Magnesium 1GM/D5W 100ML PREMIX 100 ML IV SCH ×4 (10:55→16:22)
--- NOTE | 2017-10-03 11:15 | NUR ---
TELE1/RN ROUNDS DR. GUERRERO PT SEEN & EXAMINED BY DR. GUERRERO, WITH NEW ORDERS RECEIVED FOR BLOOD DRAW. NOTED. MONITORING CONTINUED.
[2017-10-03 12:00] VITALS: BP 125/79
--- NOTE | 2017-10-03 15:00 | NUR ---
TELE1/RN AFTERNOON ROUNDS ASSISTED PT TO THE BATHROOM, PER PT HE IS SEEING SOMETHING BUBBLING IN THE TOILET BOWL BUT I DID NOT SEE ANYTHING UNUSUAL. PT EVEN WANTING TO TOUCH SOMETHING THAT WAS NOT THERE. I TOLD THAT I DON'T NOTICE ANYTHING THAT HE WAS SEEING. PT IS COOPERATIVE, PER PT IT MUST BE SOMETHING HE TOOK BEFORE THAT MAKES HIM SEE SOMETHING THAT IS NOT THERE. ON GOING MONITORING.
[2017-10-03] MEDS ORDERED: Magnesium 1GM/D5W 100ML PREMIX 100 ML IV SCH (15:30)
[2017-10-03 16:00] VITALS: BP 127/85
[2017-10-03] MEDS ORDERED: LEVETIRACETAM (250 MG) 250 MG TABLET PO SCH (18:00)
--- NOTE | 2017-10-03 19:44 | NUR ---
TELE1/RN AM SHIFT END NOTES ALL NEEDS MET. NO ACUTE CHANGE OF CONDITION NOTED DURING THE SHIFT. PT ENDORSED TO PM NURSE TO CONTINUE CARE. CL WITHIN REACHED AND SAFETY MAINTAINED.
[2017-10-03 20:00] VITALS: BP 122/74
--- NOTE | 2017-10-03 20:00 | NUR ---
VSS 97.9-94 NORMAL SINUS RHYTHM-24 BP 122/74. SATS 100% ON ROOM AIR. COLOR FAIR. A&O X 3 WITH APPROPRIATE AFFECT. SKIN WARM, DRY, AND INTACT WITH IV VIA LEFT FOREARM FOR 0.9% NORMAL SALINE WITH 20 MEQ KCL @ 100 CC/HOUR. NO SKIN BREAKDOWN. BAÑUELOS WITH SLIGHT WEAKNESS BUT OOB WITH BRPS WITH STEADY GAIT. ABDOMEN GROSSLY DISTENDED AND FIRM WITH ASCITES. BOWEL SOUNDS AUDIBLE. NO NAUSEA OR EMESIS. LUNGS CLEAR TO AUSCULTATION. NO COUGH OR PHLEGM. NO JVD WITH ALL PERIPHERAL PULSES EASILY PALPABLE. PATIENT REMAINS IN NSR TO SINUS TACH WITH SLIGHTLY INAPPROPRIATE DIALOGUE. PATIENT SHOWS NO SIGNS OF ACUTE CARDIAC/RESPIRATORY DISTRESS OR SUPPRESSION.
[2017-10-04] VITALS: BP 113/53
--- NOTE | 2017-10-04 | NUR ---
VSS 98.2-96 NSR-20 BP 113/53. SATS 97% ON ROOM AIR. PATIENT WALKED IN HALLWAY BRIEFLY WITHOUT ASSIST. NURSE LEARNED THAT PATIENT IS A SLIGHT FLIGHT RISK HE WAS FOUND OUTSIDE BY THE DAY NURSE ON THE PREVIOUS SHIFT. BED ALARM ACTIVATED AND STAFF AWARE. BUT, SO FAR, PATIENT SEEMS HAVE MADE NO ATTEMPTS TO LEAVE. PATIENT SEEMS TO BE RESTING QUIETLY AND SHOWS NO SIGNS OF ACUTE CARDIAC/RESPIRATORY DISTRESS OR SUPPRESSION.
[2017-10-04 04:00] VITALS: BP 120/76
--- NOTE | 2017-10-04 04:00 | NUR ---
VSS 98.3-92 NSR-20 BP 120/76. SATS 98% ON ROOM AIR. PATIENT CONTINUES TO REST QUIETLY WITH NO SIGNS OF PAIN, CARDIAC/RESPIRATORY DISTRESS OR SUPPRESSION.
[2017-10-04 06:51] LABS: BASOPHILS % (AUTO) 0.6 % (0.0-2.0); EOSINOPHILS # (AUTO) 0.1 /CMM (0.0-0.7); EOSINOPHILS % (AUTO) 2.1 % (0.0-6.0); HEMATOCRIT 28 % (39-51); HEMOGLOBIN 9.3 g/dL (13.5-17.5); LYMPHOCYTES # (AUTO) 0.7 /CMM (0.8-4.8); LYMPHOCYTES % (AUTO) 26.2 % (20.0-44.0); MEAN CORPUSCULAR HEMOGLOBIN 29 PG (26.0-33.0); MEAN CORPUSCULAR HGB CONC 33 g/dl (31.0-36.0); MEAN CORPUSCULAR VOLUME 88 fL (80-96); MONOCYTES # (AUTO) 0.5 /CMM (0.1-1.30); MONOCYTES % (AUTO) 17.1 % (2.0-12.0); NEUTROPHILS # (AUTO) 1.5 /CMM (1.8-8.9); RDW COEFFICIENT OF VARIATION 27.7 (11.5-15.0); RED BLOOD CELL COUNT(AUTO) 3.22 MIL/uL (4.5-6.0); WHITE BLOOD COUNT (AUTO) 2.8 K/uL (4.3-11.0)
[2017-10-04 07:11] LABS: TROPONIN I 0.022 ng/mL (0.00-0.056)
[2017-10-04 07:17] LABS: ALBUMIN 2.3 g/dL (3.4-5.0); BILIRUBIN,TOTAL 1.6 mg/dL (0.2-1.0); CREATININE 0.6 mg/dL (0.6-1.3); MAGNESIUM 1.7 mg/dL (1.8-2.4); PHOSPHORUS 3.1 mg/dL (2.5-4.9); POTASSIUM 3.4 mmol/L (3.5-5.1); TOTAL PROTEIN, SERUM 6.4 g/dL (6.4-8.2)
--- NOTE | 2017-10-04 07:30 | NUR ---
AM LABS RESULTED @ 06:20 AND NURSE SENT A TEXT MESSAGE TO DR. KIMBLE THAT PLTS TODAY 40, FROM 49 YESTERDAY, AND 93 ON ADMISSION. ALSO, REPORTED LOW K+=3.4. NURSE ALSO REPORTED CALCIUM=8.0, MAGNESIUM=1.7, AND WBC TRENDING DOWN @ 2.8 FROM 4.6 YESTERDAY. DAY NURSES TAKING OVER CARE AWARE OF THESE FACTS.
[2017-10-04 07:53] LABS: PLATELET COUNT (AUTO) 40 /CMM (150-450)
--- NOTE | 2017-10-04 07:59 | NUR ---
BUSINESS CONTINUITY COORDINATOR OPENING RECEIVED REPORT ON PATIENT. CALL RECEIVED FOR CRITICAL LAB PLATELET 40; NIGHT RN LEFT MESSAGE FOR DR KIMBLE; WILL F/U. PATIENT A/OX3 AT THIS TIME. DENIES SOB, DIFFICULTY BREATHING OR PAIN. PATIENT APPEARS COMFORTABLE AT THIS TIME. ALL NEEDS IN REACH, BED LOWERED AND LOCKED, RAILS UPX3 FOR SAFETY, BED ALARM ON. IVF RUNNING ORDERED. TELE NSR 89 AT THIS TIME. WILL ROUND Q2H OR LESS PER NEEDS. NO S/S WITHDRAWING AT THIS TIME.
[2017-10-04 08:00] VITALS: BP_SYST 107; BP_SYST 121; BP_DIAS 57; BP_DIAS 69
[2017-10-04] MEDS ORDERED: POTASSIUM CHLORIDE 20 MEQ TAB.PRT.SR PO ONE (08:00)
--- NOTE | 2017-10-04 08:19 | NUR ---
CLINIC PHYSICIAN NOTES DR KIMBLE AT BEDSIDE. PER MD NO ORDERS AT THIS TIME; CHRONIC ISSUE. PATIENT REQUESTING TO BE DISCHARGED TODAY BACK TO [facility]. WILL FINISH REPLACEMENTS PRIOR TO DC IF PATIENT ALLOWS
[2017-10-04] MEDS: Potassium Chloride 20 MEQ in IV NS 0.9% 1,000 ML IV PRN (08:30)
[2017-10-04] MEDS: LEVETIRACETAM (250 MG) 250 MG TABLET PO SCH (08:30)
[2017-10-04] MEDS: Magnesium 1GM/D5W 100ML PREMIX 100 ML IV SCH ×2 (08:30→09:38)
[2017-10-04] MEDS: THIAMINE HCL 100 MG TABLET PO SCH (08:31)
[2017-10-04] MEDS: FOLIC ACID 1 MG TABLET PO SCH (08:31)
[2017-10-04 08:47] LABS: BAND % (MANUAL) 12 % (0.0-5.0); EOSINOPHILS % (MANUAL) 3 % (0-4); LYMPHOCYTES % (MANUAL) 24 % (16-48); MONOCYTES % (MANUAL) 19 % (0-11.0); NEUTROPHILS % (MANUAL) 42 (42-76)
[2017-10-04] MEDS ORDERED: Magnesium 1GM/D5W 100ML PREMIX 100 ML IV SCH (10:56)
[2017-10-04] MEDS ORDERED: LACTULOSE 10 G/15 ML UDC (PYXIS) PO PRN (11:00)
[2017-10-04] MEDS ORDERED: POTASSIUM CHLORIDE 20 MEQ TAB.PRT.SR PO SCH (11:00)
--- NOTE | 2017-10-04 11:28 | NUR ---
DISPATCHER SERVICE OR WORK NOTES Doctor Bel was notified HR 140, No orders to dc given, PER MD hold discharge Doctor Praveen was notified of HR 140 with activity, no new orders given, confirmed with doctor Morton previous administration of 2 grams magnesium and 40meq potassium adequate for replacement, ok to dc new orders
[2017-10-04 12:00] VITALS: BP 121/69
[2017-10-04 16:00] VITALS: BP_SYST 123; BP_DIAS 71; BP_DIAS 81
[2017-10-04] MEDS ORDERED: LEVETIRACETAM (250 MG) 250 MG TABLET PO SCH (18:35)
--- NOTE | 2017-10-04 18:41 | NUR ---
GENERAL UTILITY MACHINE OPERATOR NOTES SPOKE WITH PHARMACY UNABLE TO SCAN KEPPRA. PHARMACY UPDATED EMAR AND STILL UNABLE TO SCAN. VERIFIED WITH 2 RN CORRECT PATIENT, DOSAGE, ROUTE, USE, MEDICATION, AND TIME.
--- NOTE | 2017-10-04 19:35 | NUR ---
POUNCER CLOSING NOTE All due meds given. All needs met. Bed in the low position. Heart sinus tach 108, patient stable, care endorsed to JOSE Pepe for continuation of care
[2017-10-04 20:00] VITALS: BP 125/81
[2017-10-05] MEDS: Potassium Chloride 20 MEQ in IV NS 0.9% 1,000 ML IV PRN (01:07)
[2017-10-05 04:00] VITALS: BP 104/79
--- NOTE | 2017-10-05 07:41 | NUR ---
FIELD PRODUCER NOTES RECEIVED PATIENT IN THE BED, ALERT/ORIENTED X4. PATIENT STATES THAT HE WANTS TO GO HOME AFTER HE SEES SPRAY MACHINE LOADER.
[2017-10-05 08:00] VITALS: BP 109/61
[2017-10-05 08:00] LABS: ALBUMIN 2.3 g/dL (3.4-5.0); BILIRUBIN,TOTAL 1.4 mg/dL (0.2-1.0); CALCIUM, SERUM 8.3 mg/dL (8.5-10.1); CREATININE 0.6 mg/dL (0.6-1.3); MAGNESIUM 1.5 mg/dL (1.8-2.4); PHOSPHORUS 3.3 mg/dL (2.5-4.9); POTASSIUM 3.8 mmol/L (3.5-5.1); TOTAL PROTEIN, SERUM 6.5 g/dL (6.4-8.2)
[2017-10-05 08:13] LABS: BASOPHILS % (AUTO) 0.8 % (0.0-2.0); EOSINOPHILS # (AUTO) 0.1 /CMM (0.0-0.7); EOSINOPHILS % (AUTO) 2.8 % (0.0-6.0); HEMATOCRIT 29 % (39-51); HEMOGLOBIN 9.4 g/dL (13.5-17.5); LYMPHOCYTES # (AUTO) 0.7 /CMM (0.8-4.8); LYMPHOCYTES % (AUTO) 27.5 % (20.0-44.0); MEAN CORPUSCULAR HEMOGLOBIN 29 PG (26.0-33.0); MEAN CORPUSCULAR HGB CONC 33 g/dl (31.0-36.0); MEAN CORPUSCULAR VOLUME 88 fL (80-96); MONOCYTES # (AUTO) 0.4 /CMM (0.1-1.30); NEUTROPHILS # (AUTO) 1.4 /CMM (1.8-8.9); NEUTROPHILS % (AUTO) 54.9 % (43.0-81.0); RDW COEFFICIENT OF VARIATION 27.4 (11.5-15.0); RED BLOOD CELL COUNT(AUTO) 3.27 MIL/uL (4.5-6.0); WHITE BLOOD COUNT (AUTO) 2.6 K/uL (4.3-11.0)
[2017-10-05] MEDS: FOLIC ACID 1 MG TABLET PO SCH (08:48)
[2017-10-05] MEDS: LEVETIRACETAM (250 MG) 250 MG TABLET PO SCH (08:49)
[2017-10-05] MEDS: THIAMINE HCL 100 MG TABLET PO SCH (08:49)
[2017-10-05 08:59] LABS: PLATELET COUNT (AUTO) 39 /CMM (150-450)
--- NOTE | 2017-10-05 09:09 | NUR ---
CALCULUS TEACHER NOTES MESSAGE DR SIEGEL REGARDING PLATELET COUNT OF 39
--- NOTE | 2017-10-05 09:48 | NUR ---
spoke to doctor in person regarding platelet count of 39, no new orders given
[2017-10-05] MEDS ORDERED: Magnesium 1GM/D5W 100ML PREMIX 100 ML IV SCH ×2 (09:50→09:54)
--- NOTE | 2017-10-05 10:21 | NUR ---
Social service consult requested by disease case manager Shelby for homelessness and alcohol abuse. Pt. is a 51 year old male who was admitted to [facility] for Tachycardia. DANIS met with pt. bedside. SW is familiar with pt. from a previous admission. Pt. is alert and oriented x 4. Pt. is homeless and has been homeless for over a year. Pt. 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 Pt. is an alcoholic and drinks daily. Pt. stated, he was sober for 8 months and relapsed because he was not linked to any services when he left treatment. Pt. informed DANIS he was kicked out of [facility] but would not elaborate as to why. Pt. is interested in going to a detox treatment program. DANIS called Brittany at [facility], per pt's request and left her a voicemail message informing her to contact the patient. DANIS gave pt. list of substance abuse referrals along with homeless, health clinics and food resources. Pt. will require bus tokens. DANIS informed nursing senior production supervisor Shameka regarding pt. needing 3 bus tokens. Shameka informed DANIS she will give it to pt's nurse. Pt. declined correction placement at this time, however resources were provided. [facility] Oconnor and JOSE Dumont have been informed regarding discharge plan. No other social service needs are requested at this time. DANIS is available if needed. Homeless Waiver patient form signed by pt. and placed in pt's chart.
[2017-10-05 10:58] LABS: EOSINOPHILS % (MANUAL) 1 % (0-4); LYMPHOCYTES % (MANUAL) 13 % (16-48); MONOCYTES % (MANUAL) 11 % (0-11.0); NEUTROPHILS % (MANUAL) 75 (42-76)
[2017-10-05] MEDS ORDERED: MAGNESIUM OXIDE 400 MG TABLET PO ONE (11:00)
--- NOTE | 2017-10-05 12:47 | NUR ---
telecommunication systems designerpartner marketing intern note patient left in stable condition, educated and updated on the dc, signed dc documents, removed iv, the tip was intact, pressure and dressing applied, no bleeding, patient declined [facility] placement, ti psychiatric social worker contacted patient's coordinator who patient stated that will help him get into rehab
[2017-10-05] MEDS ORDERED: LEVETIRACETAM (250 MG) 250 MG TABLET PO SCH (18:00)
== END 2017-10-05 13:00 | disposition home or self-care (01) | DRG 422 ==
LOC: ER 16:01 → TELE-TD 17:51 → TELE1 19:51 → MEDSG1 10-04 22:44
PROVIDERS: ADMIT Internal Medicine; ATTEND Internal Medicine
DX: E86.0 Dehydration (principal); G92 Toxic encephalopathy; E43 Unspecified severe protein-calorie malnutrition; D61.818 Other pancytopenia; E87.2 Acidosis; D69.59 Other secondary thrombocytopenia; R56.9 Unspecified convulsions; K70.9 Alcoholic liver disease, unspecified; E83.42 Hypomagnesemia; E87.6 Hypokalemia; Z59.0 Homelessness; I10 Essential (primary) hypertension; Z79.899 Other long term (current) drug therapy; Z88.8 Allergy status to other drugs, medicaments and biological substances; I25.10 Atherosclerotic heart disease of native coronary artery without angina pectoris; F17.200 Nicotine dependence, unspecified, uncomplicated; K21.9 Gastro-esophageal reflux disease without esophagitis; D63.8 Anemia in other chronic diseases classified elsewhere; F10.20 Alcohol dependence, uncomplicated; F15.10 Other stimulant abuse, uncomplicated; Y90.2 Blood alcohol level of 40-59 mg/100 ml
CPT/HCPCS: 36415; 70450-TC; 71010-TC; 76700-TC; 80048-TC; 80053-TC; 80076-TC; 82140-TC; 82962-TC; 83735-TC; 84100-TC; 84425; 84484-TC; 85025-TC; 85730-TC; 86850-TC; 87081-TC; A4606; G0480; J2060; J2405; J3475; J3480; J3490; J7030; J7060; Q9967; Z7610

== ENCOUNTER 2019-11-14 15:11 | Emergency (ER) | payer MEDICAID, OTHER ==
[~2019-11-14] VITALS: Ht 177.8 cm; Wt 102.5 kg
[2019-11-14 15:20] VITALS: BP 110/57
== END 2019-11-14 15:41 | disposition home or self-care (01) ==
LOC: ER 15:17
DX: H60.92 Unspecified otitis externa, left ear (principal); G40.909 Epilepsy, unspecified, not intractable, without status epilepticus; I10 Essential (primary) hypertension; F10.10 Alcohol abuse, uncomplicated; Y90.9 Presence of alcohol in blood, level not specified; Z88.6 Allergy status to analgesic agent; Z60.2 Problems related to living alone; Z79.899 Other long term (current) drug therapy